=== PATIENT | female | born 1990 | race Caucasian/White ===

== ENCOUNTER 2017-01-02 03:58 | Emergency (ER) | payer OTHER | END 2017-01-02 06:09 | disposition home or self-care (01) | LOC: ER1 03:58 | DX: R07.89 Other chest pain (principal); F15.90 Other stimulant use, unspecified, uncomplicated; R00.2 Palpitations | CPT/HCPCS: 36415; 71020; 84484; 93005; 99285 ==

== ENCOUNTER 2017-02-12 14:18 | Emergency (ER) | payer OTHER | END 2017-02-12 15:55 | disposition home or self-care (01) | LOC: ER1 14:18 | DX: N61.1 Abscess of the breast and nipple (principal); K21.9 Gastro-esophageal reflux disease without esophagitis; F17.210 Nicotine dependence, cigarettes, uncomplicated; Z79.899 Other long term (current) drug therapy | CPT/HCPCS: 10061; 87070; 87077; 87186; 87205; 99283 ==